=== PATIENT | female | born 1930 | race African-American/Black ===

== ENCOUNTER 2018-03-09 09:13 | Inpatient (IN) | payer OTHER ==
[~2018-03-09] VITALS: Ht 154.9 cm; Wt 61.7 kg
[2018-03-09] MEDS ORDERED: ASPIRIN 81MG TABLET PO ONE (10:00)
[2018-03-09 10:11] LABS: BASOPHILS % 0.6 % (0.0-2.0); EOSINOPHILS % 2.3 % (0.0-5.0); HEMATOCRIT. 29.8 % (36.0-48.0); HEMOGLOBIN. 9.8 g/dL (12.0-16.0); LYMPHOCYTES % 31.9 % (20.0-50.0); MEAN CORPUSCULAR HEMOGLOBIN 33.4 pg (28.0-32.0); MEAN CORPUSCULAR VOLUME 101.4 fL (81.0-99.0); MEAN PLATELET VOLUME 7.6 fl (7.4-10.4); NEUTROPHILS % 57.2 % (40.0-76.0); PLATELET 258 x1000/uL (130-400); RED BLOOD CELL COUNT 2.94 mill/uL (4.2-5.4); RED CELL DISTRIBUTION WIDTH 16.8 % (11.6-14.6)
[2018-03-09 10:13] LABS: CHLORIDE 105 mEq/L (98-107)
[2018-03-09] MEDS ORDERED: MORPHINE SULFATE 2 MG/ML CPJ (NOT FOR IM USE) IV ONE (10:15)
[2018-03-09 10:57] LABS: BG BASE EXCESS -3.2 mmol/L (-2.0-2.0); BG CARBOXYHEMOGLOBIN 0.4 % (0.5-1.5); BG FRACTION INSPIRED OXYGEN 36; BG HCO3 ACT 20.9 mmol/L (22.0-26.0); BG METHEMOGLOBIN 0.1 % (0.0-1.5); BG OXYHEMOGLOBIN 96.5 % (94.0-97.0); BG PCO2 33.8 mmHg (35.0-45.0); BG PH 7.409 (7.350-7.450); BG PO2 98.1 mmHg (75.0-100.0); BG SAMPLE SITE LEFT RADIAL; BG TOTAL HEMOGLOBIN 10.2 g/dL (12.0-18.0); BG VENT MODE NASAL CANNULA
[2018-03-09 11:01] LABS: D-DIMER 14.59 mg/L FEU (<0.50); INR 1.1; PROTHROMBIN TIME 10.9 sec (9.1-11.1)
[2018-03-09] MEDS ORDERED: ONDANSETRON HCL 4MG/2ML INJ IV PRN (13:15)
[2018-03-09] MEDS ORDERED: IPRATROPIUM/ALBUTEROL 0.5-3(2.5)MG/3ML NEB INH PRN (13:15)
[2018-03-09] MEDS ORDERED: TRAMADOL 50MG TABLET PO PRN (13:15)
[2018-03-09] MEDS ORDERED: GUAIFENESIN 200MG/10ML SUGAR FREE UDC PO PRN (13:15)
[2018-03-09] MEDS ORDERED: ACETAMINOPHEN 325MG TABLET PO PRN (13:15)
[2018-03-09] MEDS ORDERED: MAGNESIUM/ALUMINUM HYDROXIDE/SIMETHICONE 30ML UDC PO PRN (13:15)
[2018-03-09] MEDS ORDERED: CLONIDINE 0.1MG TABLET PO PRN (13:15)
[2018-03-09] MEDS ORDERED: ENOXAPARIN 60MG/0.6ML SYR SUBCUT ONE (13:15)
[2018-03-09] MEDS ORDERED: DIPHENHYDRAMINE 50MG/ML VIAL IV PRN (13:15)
[2018-03-09] MEDS ORDERED: NITROGLYCERIN 0.4MG TABLET SL SL PRN (13:15)
[2018-03-09] MEDS ORDERED: DOCUSATE SODIUM 100MG CAPSULE PO PRN (13:15)
[2018-03-09] MEDS ORDERED: IOHEXOL-350 100 ML BOTTLE ONE (14:00)
[2018-03-09 14:10] LABS: VITAMIN B12 SERUM 1014 pg/mL (211-911)
[2018-03-09 14:12] LABS: FOLIC ACID (FOLATE) SERUM > 20.00 ng/mL (>5.38)
[2018-03-09] MEDS ORDERED: HYDROCODONE/ACETAMINOPHEN 5/325MG TABLET PO PRN (15:30)
[2018-03-09] MEDS ORDERED: MORPHINE SULFATE 4 MG/ML CPJ (NOT FOR IM USE) IV PRN (16:31)
[2018-03-09 16:57] VITALS: BP 134/67
[2018-03-09] MEDS: BLOOD SUGAR DIAGNOSTIC STRIP TEST SCH ×2 (17:46→21:00)
[2018-03-09] MEDS: INSULIN LISPRO 100 UNITS/ML SUBCUT SCH ×2 (17:47→21:00)
[2018-03-09] MEDS: DILTIAZEM HCL 60MG TABLET PO SCH (17:55)
[2018-03-09] MEDS ORDERED: DEXTROSE 50% WATER 50ML SYRINGE IV PRN (18:00)
[2018-03-09 20:00] VITALS: BP 92/55
[2018-03-09] MEDS ORDERED: FAMOTIDINE 20MG TABLET PO SCH (20:00)
[2018-03-09 20:15] LABS: CREATINE KINASE MB FRACTION 4.2 ng/mL (0.5-3.6)
[2018-03-09] MEDS ORDERED: ZOLPIDEM TARTRATE 5MG TABLET PO PRN (21:00)
[2018-03-09] MEDS ORDERED: NA PHOS,M-B/NA PHOS,DI-BA ENEMA 118ML PR PRN (21:00)
[2018-03-09] MEDS: GUAIFENESIN/DM 600MG/30MG ER TAB 12HR PO SCH (22:13)
[2018-03-09] MEDS: ENOXAPARIN 60MG/0.6ML SYR SUBCUT SCH (22:13)
[2018-03-10] VITALS: BP 105/52
[2018-03-10] MEDS: IPRATROPIUM BROMIDE (0.02%) 0.5MG/2.5ML NEB HHN SCH ×4 (02:01→19:45)
[2018-03-10 02:10] LABS: CREATINE KINASE MB FRACTION 3.9 ng/mL (0.5-3.6)
[2018-03-10 04:00] VITALS: BP 109/58
[2018-03-10] MEDS: DILTIAZEM HCL 60MG TABLET PO SCH ×4 (06:00→18:41)
[2018-03-10] MEDS ORDERED: PANTOPRAZOLE 40MG DR TABLET PO SCH (07:40)
[2018-03-10] MEDS: BLOOD SUGAR DIAGNOSTIC STRIP TEST SCH ×3 (07:40→18:24)
[2018-03-10 08:00] VITALS: BP 128/56
[2018-03-10] MEDS: INSULIN LISPRO 100 UNITS/ML SUBCUT SCH ×3 (08:10→18:10)
[2018-03-10] MEDS ORDERED: ASPIRIN 325MG EC TABLET PO SCH (09:00)
[2018-03-10] MEDS: GUAIFENESIN/DM 600MG/30MG ER TAB 12HR PO SCH (09:39)
[2018-03-10] MEDS: ENOXAPARIN 60MG/0.6ML SYR SUBCUT SCH (09:39)
[2018-03-10 12:00] VITALS: BP 133/59
[2018-03-10 16:00] VITALS: BP 128/59
== END 2018-03-10 21:05 | disposition short-term general hospital (02) | DRG 280 ==
LOC: ER 09:13 → 7WST 13:00 → EDBEDREQTM 13:12 → EDBEDREQ 13:12 → ENRESERV 14:49 → SUPCPDRO 15:49 → CANBEDREQ 16:13 → 7WST 17:22
PROVIDERS: ADMIT Internal Medicine; ATTEND Internal Medicine
DX: I21.4 Non-ST elevation (NSTEMI) myocardial infarction (principal); I26.99 Other pulmonary embolism without acute cor pulmonale; J96.01 Acute respiratory failure with hypoxia; D68.59 Other primary thrombophilia; D63.8 Anemia in other chronic diseases classified elsewhere; E04.2 Nontoxic multinodular goiter; E11.9 Type 2 diabetes mellitus without complications; I10 Essential (primary) hypertension; K21.9 Gastro-esophageal reflux disease without esophagitis; Z96.643 Presence of artificial hip joint, bilateral; Z96.653 Presence of artificial knee joint, bilateral; Z79.82 Long term (current) use of aspirin
CPT/HCPCS: 36415; 36600; 71045; 71275; 80053; 80061; 82375; 82550; 82553; 82607; 82746; 82805; 82962; 83036; 83540; 83550; 83880; 84484; 85025; 85379; 85610; 85730; 93005; 93306; 93970; 94640; 96372; 96374; 99285; J1650; J2270; J7030; Q9967

== ENCOUNTER 2019-02-24 04:50 | Emergency (ER) | payer OTHER ==
[~2019-02-24] VITALS: Ht 162.6 cm; Wt 84.0 kg
[2019-02-24 06:05] LABS: CHLORIDE 106 mEq/L (98-107)
[2019-02-24 06:18] LABS: BASOPHILS % 0.6 % (0.0-2.0); EOSINOPHILS % 0.7 % (0.0-5.0); HEMATOCRIT. 27.6 % (36.0-48.0); HEMOGLOBIN. 9.2 g/dL (12.0-16.0); LYMPHOCYTES % 15.9 % (20.0-50.0); MEAN CORPUSCULAR HEMOGLOBIN 34.1 pg (28.0-32.0); MEAN CORPUSCULAR VOLUME 102.2 fL (81.0-99.0); MEAN PLATELET VOLUME 7.3 fl (7.4-10.4); MONOCYTES % 10.1 % (2.0-8.0); NEUTROPHILS % 72.7 % (40.0-76.0); PLATELET 277 x1000/uL (130-400); RED CELL DISTRIBUTION WIDTH 16.8 % (11.6-14.6)
[2019-02-24] MEDS ORDERED: MORPHINE SULFATE 4 MG/ML CPJ (NOT FOR IM USE) IV ONE (08:00)
[2019-02-24] MEDS ORDERED: ASPIRIN 325MG EC TABLET PO ONE (08:00)
[2019-02-24 09:08] VITALS: BP 144/56
== END 2019-02-24 09:15 | disposition short-term general hospital (02) ==
LOC: ER 05:04
DX: R07.89 Other chest pain (principal)
CPT/HCPCS: 36415; 71045; 80053; 83880; 84484; 85025; 93005; 96374; 99285; J2270

== ENCOUNTER 2019-08-05 11:56 | Emergency (ER) | payer OTHER ==
[~2019-08-05] VITALS: Ht 154.9 cm; Wt 61.0 kg
[2019-08-05] MEDS ORDERED: LOSA50TA41 PO (12:05)
[2019-08-05] MEDS ORDERED: ATOR20TA PO (12:05)
[2019-08-05] MEDS ORDERED: WARF4TAB40 PO (12:05)
[2019-08-05] MEDS ORDERED: FAMO-135 PO (12:05)
[2019-08-05] MEDS ORDERED: ASPIRIN 81MG TABLET PO ONE (15:00)
[2019-08-05 16:19] LABS: CHLORIDE 107 mEq/L (98-107)
[2019-08-05 16:21] LABS: INR 2.7
[2019-08-05 16:23] LABS: BASOPHILS % 0.6 % (0.0-2.0); EOSINOPHILS % 1.4 % (0.0-5.0); HEMATOCRIT. 27.6 % (36.0-48.0); HEMOGLOBIN. 9.1 g/dL (12.0-16.0); LYMPHOCYTES % 28.7 % (20.0-50.0); MEAN CORPUSCULAR HEMOGLOBIN 33.3 pg (28.0-32.0); MEAN CORPUSCULAR VOLUME 100.8 fL (81.0-99.0); MEAN PLATELET VOLUME 7.4 fl (7.4-10.4); MONOCYTES % 7.7 % (2.0-8.0); NEUTROPHILS % 61.6 % (40.0-76.0); PLATELET 280 x1000/uL (130-400); RED BLOOD CELL COUNT 2.74 mill/uL (4.2-5.4); RED CELL DISTRIBUTION WIDTH 17.2 % (11.6-14.6)
[2019-08-05 18:58] VITALS: BP 178/43
== END 2019-08-05 19:00 | disposition home or self-care (01) ==
LOC: ER 11:56
DX: R07.89 Other chest pain (principal); I16.0 Hypertensive urgency; E11.9 Type 2 diabetes mellitus without complications; E78.00 Pure hypercholesterolemia, unspecified; Z98.890 Other specified postprocedural states; Z86.711 Personal history of pulmonary embolism; Z79.01 Long term (current) use of anticoagulants
CPT/HCPCS: 36415; 71045; 80053; 83880; 84484; 85025; 93005; 99285

== ENCOUNTER 2021-05-11 11:37 | Emergency (ER) | payer OTHER ==
[~2021-05-11] VITALS: Ht 154.9 cm; Wt 78.0 kg
[~2021-05-11 11:37] MED LIST: ATOR20TA PO; FAMO-135 PO; LOSA50TA41 PO; WARF4TAB40 PO
[2021-05-11 12:27] LABS: BASOPHILS % 0.5 % (0.0-2.0); EOSINOPHILS % 1.9 % (0.0-5.0); HEMATOCRIT. 23.1 % (36.0-48.0); HEMOGLOBIN. 7.7 g/dL (12.0-16.0); LYMPHOCYTES % 28.6 % (20.0-50.0); MEAN CORPUSCULAR HEMOGLOBIN 32.7 pg (28.0-32.0); MEAN CORPUSCULAR VOLUME 97.8 fL (81.0-99.0); MEAN PLATELET VOLUME 6.8 fl (7.4-10.4); MONOCYTES % 8.4 % (2.0-8.0); NEUTROPHILS % 60.6 % (40.0-76.0); PLATELET 311 x1000/uL (130-400); RED BLOOD CELL COUNT 2.37 mill/uL (4.2-5.4); RED CELL DISTRIBUTION WIDTH 24.3 % (11.6-14.6)
[2021-05-11 12:34] LABS: CHLORIDE 103 mEq/L (98-107)
[2021-05-11 12:47] LABS: PLATELET ESTIMATE NORMAL
[2021-05-11] MEDS ORDERED: ASPIRIN 81MG TABLET PO NR (14:45)
[2021-05-11 15:49] VITALS: BP 136/40
== END 2021-05-11 16:36 | disposition short-term general hospital (02) ==
LOC: ER 11:55
DX: I48.0 Paroxysmal atrial fibrillation (principal); R07.89 Other chest pain; D64.9 Anemia, unspecified; E11.9 Type 2 diabetes mellitus without complications; E78.00 Pure hypercholesterolemia, unspecified; Z20.822 Contact with and (suspected) exposure to COVID-19
CPT/HCPCS: 36415; 71045; 80053; 83880; 84484; 85025; 87426; 87804; 93005; 99285